=== PATIENT | female | born 1965 | race American Indian/Alaskan Native ===

== ENCOUNTER 2017-07-06 01:38 | Emergency (ER) | payer OTHER ==
[2017-07-06 01:38] VITALS: BMI 31.8
[2017-07-06 01:52] VITALS: TEMP 97.3; O2SAT 100
--- NOTE | 2017-07-06 02:24 | C.PDOC ---
History Of Present Illness 51 year old female presents to the ER with a complaint of upper chest discomfort that is positionally reproducible. 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 Denies palpitations or SOB. Time Seen by Provider: 07/06/17 02:16 Chief Complaint (Nursing): Palpitations History Per: Patient History/Exam Limitations: no limitations Onset/Duration Of Symptoms: Hrs Current Symptoms Are (Timing): Still Present Associated Symptoms: denies: Nausea, Dyspnea, Diaphoresis, Syncope Modifying Factors: None Exacerbating Factors: None Alleviating Factors: None Recent travel outside of the [place]: No Past Medical History Reviewed: Historical Data, Nursing Documentation, Vital Signs Vital Signs: Last Vital Signs Temp 97.3 F L 07/06/17 01:49 Pulse 68 07/06/17 02:23 Resp 15 07/06/17 02:23 BP 157/89 H 07/06/17 02:23 Pulse Ox 100 07/06/17 02:24 - Medical History PMH: Anxiety Surgical History: No Surg Hx Family History: States: Unknown Family Hx - Social History Hx Alcohol Use: No Hx Substance Use: No Review Of Systems Cardiovascular: Negative for: Palpitations Respiratory: Negative for: Shortness of Breath Musculoskeletal: Positive for: Other (Chest wall discomfort) Physical Exam - Physical Exam Appears: Non-toxic, No Acute Distress, Other (Obese black female, asleep) Skin: Normal Color, Warm, Dry Head: Atraumatic, Normacephalic Eye(s): bilateral: Normal Inspection, EOMI Oral Mucosa: Moist Neck: Normal, Supple Chest: Symmetrical, No Tenderness Cardiovascular: Rhythm Regular Respiratory: Normal Breath Sounds, No Rales, No Rhonchi, No Wheezing Gastrointestinal/Abdominal: Soft, No Tenderness Neurological/Psych: Oriented x3, Normal Speech, Normal Cognition ED Course And Treatment O2 Sat by Pulse Oximetry: 100 (Room air) Pulse Ox Interpretation: Normal Progress Note: EKG ordered. Medical Decision Making Medical Decision Making: massage therapist, positionally reproducable L upper chest discomfort, normal EKG LOW susp of ACS reassured and deferred w/u with informed consent. Disposition Doctor Will See Patient In The: Office Counseled Patient/Family Regarding: Studies Performed, Diagnosis - Disposition Referrals: [facility] [Outside] [facility] [Outside] Disposition: HOME/ ROUTINE Disposition Time: 02:24 Condition: GOOD Additional Instructions: motrin and ice therapy as needed for musculoskeletal pain of the Left upper chest EKG normal LOW suspicion of cardiac issues. Instructions: Costochondritis (ED), Musculoskeletal Pain (ED) Forms: [facility] (Telugu) - Clinical Impression Clinical Impression: Chest wall discomfort - Scribe Statement The provider has reviewed the documentation as recorded by the Scribe Brice Lopez All medical record entries made by the Scribe were at my direction and personally dictated by me. I have reviewed the chart and agree that the record accurately reflects my personal performance of the history, physical exam, medical decision making, and the department course for this patient. I have also personally directed, reviewed, and agree with the discharge instructions and disposition.
[2017-07-06 02:29] VITALS: BP 157/89; PULSE 68
[2017-07-06 02:30] VITALS: RESP 15
--- NOTE | 2017-07-08 11:15 | CARD ---
APPROVED REPORT EKG Measurement Heart [id number] <Conclusion> Sinus bradycardia Otherwise normal ECG
== END 2017-07-06 02:31 | disposition home or self-care (01) ==
LOC: C.ER 01:38
DX: R07.89 Other chest pain (principal)